=== PATIENT | female | born 1950 | race Caucasian/White ===

== ENCOUNTER → 2020-12-11 | Outpatient (CLI) | payer OTHER ==
[~2020-12-11] VITALS: Ht 147.3 cm; Wt 36.3 kg
[~2020-12-11] MED LIST: GARLIC1000 MG PO; LOSARTAN-HCTZ1 EAC3 PO; NORVASC5 MG PO; SYNTHROID100 MC1 PO; VITAMIN D3250 MC1 PO
[2020-12-11 12:05] VITALS: BP 152/70
[2020-12-11 13:40] VITALS: BP 159/72
--- NOTE | 2020-12-12 10:17 | NUR ---
12/12/20-pt called IR complaining her back still hurst after cyst aspiration that occurred yesterday. She states the pain is the same as it was before she had yesterday's procedure. I instructed her to call her neurologist who ordered the test and let him know what is going on. She verbalized understanding.
== END ==
LOC: CAT 11:08
PROVIDERS: ATTEND Nurse Practitioner
DX: M71.38 Other bursal cyst, other site (principal); M54.16 Radiculopathy, lumbar region; I10 Essential (primary) hypertension; E03.9 Hypothyroidism, unspecified; E78.5 Hyperlipidemia, unspecified; Z98.890 Other specified postprocedural states; Z79.899 Other long term (current) drug therapy; Z87.891 Personal history of nicotine dependence; Z88.8 Allergy status to other drugs, medicaments and biological substances